=== PATIENT | female | born 1990 | race Two or more races ===

== ENCOUNTER 2020-01-24 09:28 | Emergency (ER) | payer MEDICAID ==
[~2020-01-24] VITALS: Ht 167.6 cm; Wt 79.8 kg
[2020-01-24 10:13] VITALS: Ht 167.6 cm; Wt 79.8 kg
[2020-01-24 10:50] VITALS: BP 125/85
== END 2020-01-24 10:51 | disposition home or self-care (01) ==
LOC: ED 09:28
DX: F41.9 Anxiety disorder, unspecified (principal); G47.00 Insomnia, unspecified; M79.10 Myalgia, unspecified site; F17.210 Nicotine dependence, cigarettes, uncomplicated; Z98.890 Other specified postprocedural states; Z71.6 Tobacco abuse counseling
CPT/HCPCS: 99406

== ENCOUNTER 2020-07-01 09:50 | Emergency (ER) | payer MEDICAID, SELFPAY ==
[2020-07-01 12:23] VITALS: BP 120/80
== END 2020-07-01 11:56 | disposition home or self-care (01) ==
LOC: ED 09:50
DX: B34.9 Viral infection, unspecified (principal); Z20.828 Contact with and (suspected) exposure to other viral communicable diseases
CPT/HCPCS: 99406; U0003